=== PATIENT | male | born 1940 | race Asian ===

== ENCOUNTER → 2018-03-14 | Outpatient (CLI) | payer MEDICARE ==
[~2018-03-14] MED LIST: GADOBUTROL 1 MMOL/ML 10 ML VIAL IVP ONE
== END | disposition home or self-care (01) ==
LOC: RADMN 08:39
PROVIDERS: ATTEND Physician Assistant
DX: M43.16 Spondylolisthesis, lumbar region (principal); M48.061 Spinal stenosis, lumbar region without neurogenic claudication; M41.86 Other forms of scoliosis, lumbar region; M47.896 Other spondylosis, lumbar region
CPT/HCPCS: 72110; 72158; A9585